=== PATIENT | male | born 1955 | race Caucasian/White ===

== ENCOUNTER 2017-04-10 17:26 | Emergency (ER) | payer OTHER ==
[2017-04-10 17:57] VITALS: BP 101/70
--- NOTE | 2017-04-10 18:34 | UC ---
Upper Extremity HPI - HPI Summary HPI Summary: 61M presents with left arm pain for a month. He states he had neck pain that radiated down his shoulder for over a month. Since then he started prednisone for an asthma attack and his neck pain got better. He had to have lab work done and they missed his vein multiple times a month ago. He developed bruising and swelling in his left lower arm because of this. The swelling has decreased since then. He states pain now radiates from neck down to fingers. no numbness or tingling beside middle finger where nerve was cut years ago. no weakness. 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 no chest pain or SOB. - History of Current Complaint Chief Complaint: UCUpperExtremity Stated Complaint: PAIN LEFT SHOULDER TO HAND Time Seen by Provider: 04/10/17 18:12 - Allergies/Home Medications Allergies/Adverse Reactions: Allergies Allergy/AdvReac Type Severity Reaction Status Date / Time Ketorolac Tromethamine Allergy Severe PASSES OUT Verified 04/10/17 17:50 [From Toradol] Penicillins Allergy Unknown Verified 04/10/17 17:50 Reaction Details Cyclobenzaprine AdvReac headache Verified 04/10/17 17:50 [From Flexeril] and sore throat Home Medications: Home Medications Albuterol 2.5MG/3ML (0.083%)* [Ventolin 2.5 MG/3 ML NEB.BENY*] 2.5 mg INH Q6H PRN 04/10/17 [History Confirmed 04/10/17] Albuterol HFA INHALER* [Ventolin HFA Inhaler*] 1 - 2 puff INH Q4H PRN 04/10/17 [ History Confirmed 04/10/17] Amlodipine Besylate-Olmesartan [Moose 5-20 mg] 1 tab PO DAILY 04/10/17 [History Confirmed 04/10/17] PMH/Surg Hx/FS Hx/Imm Hx Cardiovascular History: Hypertension Respiratory History: Asthma - Surgical History Surgical History: Yes Surgery Procedure, Year, and Place: BACK SURGERY X 2 LAST ONE 2000, [facility]. [facility] - Family History Known Family History: Negative: Diabetes - Social History Alcohol Use: None Substance Use Type: None Smoking Status (MU): Never Smoked Tobacco - Immunization History Most Recent Influenza Vaccination: February 2017 Review of Systems Constitutional: Negative Respiratory: Negative Cardiovascular: Negative Musculoskeletal: Other: - left arm pain All Other Systems Reviewed And Are Negative: Yes Physical Exam Triage Information Reviewed: Yes Appearance: Well-Appearing Vital Signs: Initial Vital Signs Temp 97.8 F 04/10/17 17:48 Pulse 96 04/10/17 17:48 Resp 16 04/10/17 17:48 BP 101/70 04/10/17 17:48 Pulse Ox 96 04/10/17 17:48 Vital Signs Reviewed: Yes Eyes: Positive: Conjunctiva Clear Respiratory: Positive: Lungs clear, Normal breath sounds Cardiovascular: Positive: RRR Musculoskeletal: Positive: Strength Intact - left arm, ROM Intact - neck, No Edema - left arm, Other: - no midline tenderness neck. tender on left side of neck, mild tenderness left forearm. Neurological Exam: Normal Neurological: Positive: Other: - biceps reflex intact Psychological Exam: Normal Skin Exam: Normal Upper Extremity Course/Dx - Course Course Of Treatment: 61M presents with left arm pain for a month. He states he had neck pain that radiated down his shoulder for over a month. Since then he started prednisone for an asthma attack and his neck pain got better. He had to have lab work done and they missed his vein multiple times a month ago. He developed bruising and swelling in his left lower arm because of this. The swelling has decreased since then. He states pain now radiates from neck down to fingers. no numbness or tingling beside middle finger where nerve was cut years ago. no weakness. 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 no chest pain or SOB. on exam has no edema noted. tenderness over left side of neck. no midline tendernes. neurovascular intact. discussed with patient that do not have any u/ s today. unlikely that has blood clot in lower arm but still discussed will follow up with primary for u/s as has appointment tomorrow. patient is already on hydrocodone and muscle relaxant so will not add anything for neck pain at this time. will have follow up with primary for continued treatment. medications reviewed. patient understands and agrees with plan. - Differential Dx/Diagnosis Differential Diagnosis/HQI/PQRI: Strain, Sprain, Other - dvt, plebitis Provider Diagnoses: left arm pain Discharge - Discharge Plan Condition: Good Disposition: HOME Patient Education Materials: Arm Pain (ED) Referrals: Tawanda Galan [Primary Care Provider] - Additional Instructions: Follow up with primary, probably good idea to suggest an u/s to rule out a blood clot in that lower arm For neck pain can try topical lidocaine patch that have OTC You may benefit from PT or massage or chirpractor which can be arranged by your primary. Return to ED if develop any new or worsening symptoms
== END 2017-04-10 18:44 | disposition home or self-care (01) ==
LOC: UCCORT 17:26
DX: M79.602 Pain in left arm (principal); I10 Essential (primary) hypertension; J45.909 Unspecified asthma, uncomplicated
CPT/HCPCS: 99211; G0463

== ENCOUNTER 2017-09-13 18:47 | Emergency (ER) | payer OTHER ==
--- NOTE | 2017-09-13 19:24 | UC ---
Respiratory Complaint HPI - HPI Summary HPI Summary: 62 yr old male w/ h/o COPD and asthma here with SOB and wheezing. sx x 2 wks. he wears O2 NC at HS 3 L. sx ahve not necessarily gotten worse over 2 wks but he is tired of feeling SOB. he uses symbicort 80 mcg 1 puff BID and uses albuterol and has been using alb frequently. he was much sicker with similar sx ~ 1 mo ago - he went to [facility] at that time w/ 88% O2 sat. He denies chest pain, but wheezing, breathing tightness. -denies fever, + cough. -gets these sx frequently and treated w/ abx and prednisone. -here w/ his who is a good historian - History of Current Complaint Stated Complaint: TIGHT CHEST, RESPIRATORY Time Seen by Provider: 09/13/17 19:08 - Allergies/Home Medications Allergies/Adverse Reactions: Allergies Allergy/AdvReac Type Severity Reaction Status Date / Time cyclobenzaprine Allergy RITTER AND Verified 09/13/17 19:14 SORE THROAT ketorolac Allergy PASSES OUT Verified 09/13/17 19:14 Penicillins Allergy Unknown Verified 09/13/17 19:14 Reaction Details Home Medications: Home Medications Budesonide/Formote 80/4.5(NF) [Symbicort 80/4.5 (NF)] 1 puff INH BID 09/13/17 [ History Confirmed 09/13/17] PMH/Surg Hx/FS Hx/Imm Hx Previously Healthy: Yes Cardiovascular History: Hypertension Respiratory History: COPD, Asthma - Surgical History Surgical History: Yes Surgery Procedure, Year, and Place: BACK SURGERY 1997,. [facility]. [facility] 2000 - Family History Known Family History: Negative: Diabetes - Social History Alcohol Use: None Substance Use Type: None Smoking Status (MU): Never Smoked Tobacco - Immunization History Most Recent Influenza Vaccination: February 2017 Review of Systems Constitutional: Chills Skin: Negative Eyes: Negative ENT: Sore Throat, Nasal Discharge Respiratory: Shortness Of Breath, Cough Cardiovascular: Negative Gastrointestinal: Negative Genitourinary: Negative Motor: Negative Neurovascular: Negative Musculoskeletal: Negative Neurological: Negative Psychological: Negative Is Patient Immunocompromised?: No All Other Systems Reviewed And Are Negative: Yes Physical Exam Triage Information Reviewed: Yes Appearance: Ill-Appearing - speaking full sentences w/o SOB. no stridor., Thin Vital Signs Reviewed: Yes Eye Exam: Normal ENT: Positive: Pharyngeal erythema - mild, no exudate, TMs normal. Negative: Sinus tenderness Dental Exam: Other - adentulous Neck exam: Normal Neck: Positive: Supple, Nontender, No Lymphadenopathy Respiratory: Positive: Decreased breath sounds, Wheezing - b/l throughout.. Negative: No respiratory distress, No accessory muscle use, Respiratory distress , Crackles, Rhonchi - + right, Stridor Cardiovascular Exam: Normal Cardiovascular: Positive: RRR, No Murmur, Pulses Normal Abdomen Description: Positive: Nontender, Soft Musculoskeletal Exam: Normal Neurological Exam: Normal Psychological Exam: Normal Skin Exam: Normal Respiratory Course/Dx - Course Course Of Treatment: O2 is 97% on RA. _EKG #1: NSR, LAD, ? LAFB. poor rwave progression lead 5 & 6. no prevto compare. request rpt. -EKG #2: NSR, LAD, ? LAFB. poor r wave progression of lead 5 & 6, but improved from EKG #1. -CXR: read as negative by radiology. -albuterol neb x 1 here. previous 1 hr prior to arrival per pt. improved breath sounds but still w/ insp and exp wheezing. - doxy 100mgs 1 po bid x 10 days, 1st dose here. -prednisone 60mgs taper. 60mgs given here po tonight. -take probiotic daily while on abx. - Differential Dx/Diagnosis Differential Diagnosis/HQI/PQRI: Asthma, Bronchitis, Exacerbation Of COPD, Lower Resp Infection Provider Diagnoses: COPD exacerbation Discharge - Sign-Out/Discharge Documenting (check all that apply): Discharge - Discharge Plan Condition: Stable Disposition: HOME Prescriptions: Doxycycline Hyclate 100 mg PO BID #20 tab predniSONE [Prednisone] 20 mg PO DAILY 12 Days #17 tablet Patient Education Materials: Prednisone (By mouth), COPD (Chronic Obstructive Pulmonary Disease) (ED) Referrals: Domingo Padilla MD [Primary Care Provider] - 3 Days Additional Instructions: -Make sure to take a probiotic daily while on antibiotics to help prevent a potential complication of antibiotic use called c diff. Some well known brands that can be found OTC are florastor, [employer] and [employer]. Make sure to complete the entire prescription unless advised otherwise by your health care provider. -You should use the albuterol nebulizer every 4-6 hrs as needed. You should wear your oxygen during the day at 3 L while you are sick. -The chest xray did not show any pneumonia. -Make sure you are taking the symbicort as directed on your medication prescription. - Billing Disposition and Condition Condition: STABLE Disposition: HOME
[2017-09-13] MEDS ORDERED: Albuterol 2.5 MG/3 ML NEB.SOL* (0.083%) INH ONE (19:51)
[2017-09-13 19:52] VITALS: BP 107/71
--- NOTE | 2017-09-13 20:04 | RAD ---
INDICATION: Wheezing and cough COMPARISON: Most recent comparison chest x-rays dated November 21, 2016 TECHNIQUE: PA and lateral views of the chest were obtained. FINDINGS: The heart and mediastinum are normal in size and contour. The lungs are grossly clear. There is no evidence of large pleural effusion. Visualized bones are normal for the patient's age. There is no radiographic evidence of free air beneath the diaphragm IMPRESSION: No radiographic evidence of acute cardiopulmonary disease.
[2017-09-13] MEDS ORDERED: predniSONE TAB* 20 MG PO ONE (20:15)
[2017-09-13] MEDS ORDERED: DOXYcycline CAP(*) 100 MG PO ONE (20:15)
== END 2017-09-13 20:37 | disposition home or self-care (01) ==
LOC: UCCORT 18:47
DX: J44.1 Chronic obstructive pulmonary disease with (acute) exacerbation (principal); Z99.81 Dependence on supplemental oxygen; Z88.0 Allergy status to penicillin; Z88.8 Allergy status to other drugs, medicaments and biological substances
CPT/HCPCS: 71046; 93005; 99213; A9270-GY; G0463; J7512